=== PATIENT | female | born 1980 | race Caucasian/White ===

== ENCOUNTER 2018-04-22 09:03 | Inpatient (IN) | payer OTHER ==
[~2018-04-22] VITALS: Ht 148 cm; Wt 85.3 kg
[2018-04-22] MEDS ORDERED: RINGERS SOLUTION,LACTATED 1,000 ML IV ONE (09:04)
[2018-04-22] MEDS ORDERED: PREN1TAB80 PO (09:07)
[2018-04-22] MEDS ORDERED: CITRIC ACID/SODIUM CITRATE 30 ML SOLUTION UDCUP PO ONE (09:15)
[2018-04-22] MEDS ORDERED: METOCLOPRAMIDE HCL 5 MG/ML 2 ML VIAL IVP ONE (09:15)
[2018-04-22 09:49] LABS: BASOPHILS % (AUTO) 0.7 % (0.0-2.0); EOSINOPHILS % (AUTO) 0.6 % (1.0-6.0); HEMATOCRIT 34.1 % (36-46); HEMOGLOBIN 11.3 g/dL (12.0-16.0); LYMPHOCYTES # (AUTO) 2.1 K/uL (1.0-4.8); MEAN CORPUSCULAR HEMOGLOBIN 27.1 pg (26.0-34.0); MEAN CORPUSCULAR VOLUME 82 fL (80-100); MONOCYTES # (AUTO) 0.6 K/uL (0.1-1.0); MONOCYTES % (AUTO) 7.3 % (2.0-9.0); NEUTROPHILS # (AUTO) 5.1 K/uL (1.8-7.7); NEUTROPHILS % (AUTO) 64.4 % (40.0-70.0); PLATELET COUNT (AUTO) 259 K/uL (150-450); RED BLOOD CELL COUNT(AUTO) 4.15 MIL/uL (4.00-5.20); RED CELL DISTRIBUTION WIDTH 14.7 % (11.5-14.5)
[2018-04-22] MEDS ORDERED: MORPHINE SULFATE/PF 0.5 MG/ML 10 ML AMP ONE (10:34)
[2018-04-22] MEDS ORDERED: ACETAMINOPHEN 1000 MG/ISO-OSM 100 ML IV ONE (10:34)
[2018-04-22] MEDS ORDERED: BUPIVACAINE HCL/DEX-WATER/PF 0.75% 2 ML AMP ONE (10:35)
[2018-04-22] MEDS ORDERED: HYDROmorphone 2 MG/ML SYRINGE IVP PRN ×2 (11:00)
[2018-04-22] MEDS ORDERED: DiphenhydrAMINE HCL 50 MG/ML VIAL IVP PRN (11:00)
[2018-04-22] MEDS ORDERED: OxyCODONE HCL/ACETAMINOPHEN 10-325 MG TABLET PO PRN (11:00)
[2018-04-22] MEDS ORDERED: NALOXONE HCL 0.4 MG/ML VIAL IVP PRN (11:00)
[2018-04-22] MEDS ORDERED: ONDANSETRON HCL 4 MG/2 ML VIAL IVP PRN (11:00)
[2018-04-22] MEDS ORDERED: MEPERIDINE-PF 25 MG/ML VIAL IVP PRN (11:00)
[2018-04-22] MEDS ORDERED: FentaNYL CITRATE-PF 100 MCG/2 ML VIAL IVP PRN ×2 (11:00)
[2018-04-22] MEDS ORDERED: ONDANSETRON HCL 4 MG/2 ML VIAL IVP ONE (12:00)
[2018-04-22] MEDS ORDERED: EPHEDrine SULFATE 50 MG/ML VIAL IM ONE (12:00)
[2018-04-22] MEDS ORDERED: GENTAMICIN SULFATE 160 MG in DEXTROSE 5%-WATER 50 ML IV ONE (12:00)
[2018-04-22] MEDS ORDERED: 0.9% SODIUM CHLORIDE 10 ML VIAL IVP ONE (12:00)
[2018-04-22] MEDS ORDERED: OXYTOCIN 10 UNITS/ML VIAL IM ONE (12:00)
[2018-04-22] MEDS ORDERED: ACETAMINOPHEN/CODEINE 300-30 MG TABLET PO PRN ×2 (12:30)
[2018-04-22] MEDS ORDERED: LANOLIN 7 GM OINTMENT TP PRN (12:30)
[2018-04-22] MEDS ORDERED: CLINDAMYCIN 900 MG/D5% WATER 50 ML IV SCH (13:00)
[2018-04-22] MEDS: ACETAMINOPHEN 500 MG TABLET PO SCH (17:16)
[2018-04-22] MEDS: DEXTROSE 5%-0.45% SODIUM CHL 1,000 ML IV SCH ×2 (17:16→21:18)
[2018-04-22] MEDS ORDERED: CLINDAMYCIN 900 MG/D5% WATER 50 ML IV ONE (21:00)
[2018-04-23] MEDS: ACETAMINOPHEN 500 MG TABLET PO SCH (00:12)
[2018-04-23] MEDS: DEXTROSE 5%-0.45% SODIUM CHL 1,000 ML IV SCH ×2 (01:32→04:55)
[2018-04-23] MEDS ORDERED: GENTAMICIN SULFATE 160 MG in DEXTROSE 5%-WATER 50 ML IV ONE ×2 (02:00→13:15)
[2018-04-23] MEDS: IBUPROFEN 800 MG TABLET PO SCH ×3 (05:39→19:36)
[2018-04-23 05:45] VITALS: BP 124/61
[2018-04-23] MEDS ORDERED: CLINDAMYCIN 900 MG/D5% WATER 50 ML IV ONE ×2 (06:15→13:15)
[2018-04-23] MEDS ORDERED: MORPHINE SULFATE/PF 0.5 MG/ML 10 ML AMP IVP ONE (06:47)
[2018-04-23] MEDS ORDERED: FentaNYL CITRATE-PF 100 MCG/2 ML VIAL IVP ONE (06:47)
[2018-04-23] MEDS ORDERED: LIDOCAINE/PF 1% 2 ML VIAL IM ONE (13:30)
[2018-04-23] MEDS ORDERED: CefTRIAXone SODIUM 1 GM/VIAL IM ONE (13:30)
[2018-04-23] MEDS: MAGNESIUM HYDROXIDE SUSPENSION 30 ML UDCUP PO SCH (19:37)
[2018-04-24] MEDS: IBUPROFEN 800 MG TABLET PO SCH ×4 (02:03→21:09)
[2018-04-24] MEDS: MAGNESIUM HYDROXIDE SUSPENSION 30 ML UDCUP PO SCH ×2 (08:54→21:00)
[2018-04-25] MEDS: IBUPROFEN 800 MG TABLET PO SCH (09:58)
[2018-04-25] MEDS: MAGNESIUM HYDROXIDE SUSPENSION 30 ML UDCUP PO SCH (09:58)
[2018-04-25] MEDS ORDERED: HYDR-4455 PO (10:14)
[2018-04-25] MEDS ORDERED: HYDR-4061 PO (10:16)
[2018-04-25] MEDS ORDERED: FERR-89 PO (10:19)
[2018-04-25] MEDS ORDERED: IBUP-2071 PO (10:19)
[2018-04-25] MEDS ORDERED: DSS100 PO (10:20)
== END 2018-04-25 12:15 | disposition home or self-care (01) | DRG 788 ==
LOC: 4S 09:03 → OBSVTOIN 09:03
PROVIDERS: ADMIT Obstetrics & Gynecology; ATTEND Obstetrics & Gynecology
PROC: 10D00Z1 Extraction of Products of Conception, Low, Open Approach (ICD-10-PCS; principal; 2018-04-22)
DX: O99.824 Streptococcus B carrier state complicating childbirth (principal); O75.89 Other specified complications of labor and delivery; N94.89 Other specified conditions associated with female genital organs and menstrual cycle; Z3A.39 39 weeks gestation of pregnancy; Z37.0 Single live birth
CPT/HCPCS: 87081; J0131; J0690; J0696; J1580; J2274; J2405; J2590; J2765; J3010; J3490; J7060